=== PATIENT | female | born 1945 | race Two or more races ===

== ENCOUNTER 2023-11-05 08:19 | Emergency (ER) | payer SELFPAY ==
[2023-11-05 08:43] VITALS: BP 163/65; PULSE 90; RESP 18; TEMP 98; BMI 28.7
[2023-11-05] MEDS ORDERED: LIDOCAINE 5% TOPICAL PATCH TP ONE (09:11)
[2023-11-05] MEDS ORDERED: ACETAMINOPHEN 500 MG TABLET (FP) PO ONE (09:13)
[2023-11-05] MEDS ORDERED: ACETAMINOPHEN 325 MG TABLET (FP) ONE (09:32)
[2023-11-05] MEDS ORDERED: LIDOCAINE 4% PATCH TP ONE (09:33)
[2023-11-05 09:55] LABS: BASO % 0.3 % (0-2.0); EOS % 2.3 % (0-4.5); HEMATOCRIT 41.9 % (32.4-45.2); HEMOGLOBIN 13.6 GM/dL (10.7-15.3); MCH 27.1 pg (25.7-33.7); MCHC 32.4 g/dl (32.0-36.0); MEAN CELL VOLUME 83.7 fl (80-96); MONO % 9.7 % (3.8-10.2); NEUT % 40.7 % (42.8-82.8); PLATELET COUNT 302 10^3/uL (134-434); RDW 14.5 % (11.6-15.6)
[2023-11-05 10:13] LABS: POTASSIUM 4.8 mmol/L (3.5-5.1)
[2023-11-05 10:14] LABS: CALCIUM 10.3 mg/dL (8.5-10.1)
[2023-11-05 10:15] LABS: ALBUMIN 3.7 g/dl (3.4-5.0); BLOOD UREA NITROGEN 15.8 mg/dL (7-18); MAGNESIUM 2.3 mg/dL (1.8-2.4)
[2023-11-05 10:18] LABS: CREATININE 0.9 mg/dL (0.55-1.3)
[2023-11-05 10:20] LABS: BILIRUBIN,TOTAL 0.4 mg/dL (0.2-1); TOT PROT 7.5 g/dl (6.4-8.2)
[2023-11-05 10:23] LABS: INR 0.97 (0.83-1.09); PROTHROMBIN TIME (PATIENT) 11.2 SEC (9.7-13.0)
[2023-11-05 10:26] LABS: ACTIVATED PTT 28.4 SECONDS (25.2-36.5)
[2023-11-05] MEDS ORDERED: LIDOCAINE PATCH REMOVAL MC SCH (22:00)
== END 2023-11-05 12:30 | disposition home or self-care (01) ==
LOC: JER 08:19
DX: M25.511 Pain in right shoulder (principal); M54.9 Dorsalgia, unspecified; R53.1 Weakness; Z20.822 Contact with and (suspected) exposure to COVID-19
CPT/HCPCS: 0241U-QW; 36415; 71045-TC-FY; 73030-TC-RT-FY; 80053; 83735; 84484; 85025; 85610; 85730; 93005; 93010; 99285-25